=== PATIENT | male | born 2000 | race Caucasian/White ===

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

== ENCOUNTER 2022-11-13 17:10 | Outpatient (REF) | payer BC, MEDICAID, SELFPAY ==
[2022-11-13 21:02] LABS: Abs Immature Grans 0.01 10^3/uL (0.0-0.06); Absolute Basophil Count 0.04 10^3/uL (0.0-0.2); Absolute Lymphocyte Count 1.94 10^3/uL (1.2-3.4); Absolute Monocyte Count 0.59 10^3/uL (0.1-0.8); Absolute Neutrophil Count 2.89 10^3/uL (1.2-6.7); Basophils % 0.7; Eosinophils % 1.8; HCT 47.4 % (40.0-50.0); HGB 16.3 g/dL (13.5-17.5); Immature Grans % 0.2; Lymphocytes % 34.8; MCHC 34.4 % (32.0-36.0); MCV 93 fL (80-95); MPV 9.3 fL (8.0-11.0); Monocytes % 10.6; Neutrophils % 51.9; Platelet Count 249 10^3/uL (130-400); RBC 5.09 10^6/uL (4.36-5.78); RDW 11.1 % (11.8-14.1); RDW-SD 38.5 fL; WBC 5.57 10^3/uL (4.4-10.8)
[2022-11-13 21:15] LABS: ALT 21 U/L (16-63); AST 22 U/L (15-37); Albumin 4.5 g/dL (3.4-5.0); Alkaline Phosphatase 93 U/L (46-116); Anion Gap 5.3 mmol/L (3-11); BUN 14 mg/dL (7-18); Bilirubin, Total 0.4 mg/dL (0.2-1.0); CO2 33.7 mmol/L (21.0-32.0); CREATININE 1.2 mg/dL (0.70-1.30); Calcium 9.7 mg/dL (8.5-10.1); Chloride 103 mmol/L (98-107); Estimated GFR 89.34 (mL/min/1.73m2); Glucose 84 mg/dL (74-106); Magnesium 1.7 mg/dL (1.8-2.4); Potassium 4.6 mmol/L (3.5-5.1); Sodium 142 mmol/L (136-145); Total Protein 7.8 g/dL (6.4-8.2)
== END 2022-11-13 17:11 | disposition home or self-care (01) ==
LOC: LBN 17:10
PROVIDERS: Visit Provider Nurse Practitioner Family
DX: R11.2 Nausea with vomiting, unspecified (principal); R19.7 Diarrhea, unspecified; R10.9 Unspecified abdominal pain
CPT/HCPCS: 80053; 83735; 85025

== ENCOUNTER 2023-02-18 17:49 | Outpatient (REF) | payer BC, SELFPAY | END 2023-02-18 17:50 | disposition home or self-care (01) | LOC: LBN 17:49 | PROVIDERS: Visit Provider Nurse Practitioner Family | DX: J02.9 Acute pharyngitis, unspecified (principal) | CPT/HCPCS: 87077; 87070 ==

== ENCOUNTER 2023-04-23 20:08 | Emergency (ER) | payer BC, SELFPAY ==
[2023-04-23 20:12] VITALS: BP 123/55; PULSE 91; RESP 18; TEMP 36.7; O2SAT 100
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
[2023-04-23] MEDS: Fluorescein STRIPS 100/BOX 1 MG (20:33)
[2023-04-23] MEDS: Balanced Salt Solution 15 ML BTL OP (20:33)
[2023-04-23] MEDS: Tetracaine 0.5% 4 ML BTL (20:34)
[2023-04-23] MEDS: Ondansetron O.D.T. 4 MG TABEF PO (20:47)
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
[2023-04-23 21:52] VITALS: BP 129/62; PULSE 88; RESP 16; O2SAT 99
== END 2023-04-23 21:54 | disposition home or self-care (01) ==
PROVIDERS: Emergency Provider Registered Nurse Emergency
DX: S05.12XA Contusion of eyeball and orbital tissues, left eye, initial encounter (principal); S05.8X2A Other injuries of left eye and orbit, initial encounter; Y09 Assault by unspecified means
CPT/HCPCS: 99283; 99282

== ENCOUNTER 2024-05-06 20:34 | Outpatient (REF) | payer BC, SELFPAY ==
[2024-05-09 12:48] LABS: GC Result Negative (Negative)
[2024-05-09 13:24] LABS: Chlamydia Result Positive (Negative)
== END 2024-05-06 20:35 | disposition home or self-care (01) ==
LOC: LBN 20:34
PROVIDERS: Visit Provider Nurse Practitioner Family
DX: A74.89 Other chlamydial diseases; Z20.2 Contact with and (suspected) exposure to infections with a predominantly sexual mode of transmission
CPT/HCPCS: 87491; 87591

== ENCOUNTER 2024-10-05 17:26 | Emergency (ER) | payer OTHER, SELFPAY ==
[2024-10-05 17:46] VITALS: BP 131/76; PULSE 80; RESP 16; TEMP 36.7; O2SAT 98
--- NOTE | 2024-10-05 18:00 | DI.RAD_ITS ---
Exam(s) XR FINGER LT INDEX EXAM: XR FINGER LT INDEX CLINICAL HISTORY: crush at distal tip. TECHNIQUE: 2D digital imaging was performed. COMPARISON: No exams were available for comparison FINDINGS: 3 views No evidence of acute fracture nor dislocation. No osseous lesions nor erosions. There is no gas in the soft tissues. No radiopaque foreign bodies. IMPRESSION: No acute osseous findings. DATA REPOSITORY: RADIATION DOSE DELIVERED:
[2024-10-05] MEDS: Ibuprofen 800 MG TAB PO (18:07)
[2024-10-05 18:09] VITALS: RESP 16
--- NOTE | 2024-10-05 18:15 | ED.GENADUL_ITS ---
Discharge Plan Disposition Patient Disposition: Home Condition: Good Discharge Details Clinical Impression: Subungual hematoma of left index finger Primary Care Provider: Unknown,Unknown ED Provider: Messi Hill Home Meds and New Rx's Prescriptions: No Action No Known Home Meds Discharge Instructions Instructions: Cephalexin, Bruising Under the Nail Additional Instructions: At this time the x-ray does not show any evidence of fracture. It is likely that the bone has been bruised though. Please take Tylenol and Motrin for pain. The subungual hematoma has been drained. This will continue to drain for the next few hours. If you notice any spreading redness up the finger please return immediately for reassessment as this could represent infection. Please take the 4 doses of antibiotics that have been given. If you notice any worsening of your symptoms, or any new symptoms such as vomiting, diarrhea, fever, chills, shortness of breath, chest pain, numbness, weakness, or fainting , please return immediately to the emergency department for reevaluation. Please follow up with your primary care provider as soon as possible for reassessment and reev aluation. As always, it was a pleasure participating in your medical care today. HPI General Date/Time Provider Initiated Documentation: 10/05/24 17:38 . HPI Narrative: 23-year-old male who is right-hand dominant presents today for injury to his left index finger. Patient states that he was at work and a piece of sheet metal landed on the tip of his finger causing significant pain, then he subsequently developed a hematoma underneath his fingernail. He admits to a throbbing sensation in his finger. Pain is made worse with palpation and movement. He denies any numbness or tingling otherwise. Tetanus was last updated in 2013. No other complaints at this time. No other injuries. Related Data Home Medications ?Medication ?Instructions ?Recorded ?Confirmed Unknown [No Known Home Meds] 10/05/24 10/05/24 Allergies Allergy/AdvReac Type Severity Reaction Status Date / Time No Known Allergies Allergy Verified 10/05/24 17:50 General Stated Complaint: GenMedical MOISÉS: 4 Exam Narrative Exam Narrative: 1.Const: Well-nourished, Well-developed, appearing stated age 2.Eyes: PERRL, no conjunctival injection, and symmetrical lids. 3.ENT: Atraumatic external nose and ears. Moist MM. Neck: Symmetric, trachea midline, No thyromegaly. 4.CVS: +S1/S2, Peripheral pulses 2+ and equal in all extremities. Brisk capillary refill in all extremities. 5.RESP: Unlabored respiratory effort. Clear to auscultation bilaterally. No wheezes rales or rhonchi 6.GI: Soft, Nontender/Nondistended, No hepatosplenomegaly. No guarding or rebound. 7.MSK: Patient's left index finger demonstrates no tenderness at the MCP joint, PIP joint, minimal tenderness at the DIP joint, and notable tenderness at the distal tip over the nail. Subungual hematoma is certainly present. It encompasses about 50% of the nail. No nail cuticle disruption otherwise. No other abnormalities. No bleeding. Distal sensation is intact. Capillary refill is brisk. Patient is able to flex and extend the finger at all joints without difficulty. 8.Skin: Warm, Dry. No rashes or lesions. 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 Sensation grossly intact, no focal neurologic deficits. 10.Psych: (AAO) x3. Appropriate mood and affect Course Vital Signs Vital signs: Vital Signs Temperature 36.7 C 10/05/24 17:46 Pulse 80 10/05/24 17:46 Respiratory Rate 16 10/05/24 17:46 Blood Pressure 131/76 10/05/24 17:46 Pulse Oximetry 98 10/05/24 17:46 Temperature 36.7 C 10/05/24 17:46 Pulse 80 10/05/24 17:46 Respiratory Rate 16 10/05/24 18:09 Respiratory Effort Normal, Non-Labored 10/05/24 18:09 Respiratory Depth Normal 10/05/24 18:09 Respiratory Pattern Normal 10/05/24 18:09 Blood Pressure 131/76 10/05/24 17:46 Blood Pressure Position Sitting 10/05/24 17:46 Pulse Oximetry 98 10/05/24 17:46 Pain Level 10 10/05/24 18:10 Procedures Nail Trephination Time out: Yes Location (finger): left and index Method of drainage: nail cautery Procedure successful: Yes Patient tolerated procedure: well and no complications Medical Decision Making 23-year-old male who is right-hand dominant presents today for injury to his left index finger. Patient states that he was at work and a piece of sheet metal landed on the tip of his finger causing significant pain, then he subsequently developed a hematoma underneath his fingernail. He admits to a throbbing sensation in his finger. Pain is made worse with palpation and movement. He denies any numbness or tingling otherwise. Tetanus was last updated in 2013. No other complaints at this time. No other injuries. Patient's left index finger demonstrates no tenderness at the MCP joint, PIP joint, minimal tenderness at the DIP joint, and notable tenderness at the distal tip over the nail. Subungual hematoma is certainly present. It encompasses about 50% of the nail. No nail cuticle disruption otherwise. No other abnormalities. No bleeding. Distal sensation is intact. Capillary refill is brisk. Patient is able to flex and extend the finger at all joints without difficulty. Concern for potential fracture. Soft, inguinal hematoma would certainly benefit from drainage. Patient does need his tetanus shot updated. X-ray was ordered and shows no evidence of fracture. Subungual hematoma was subsequently drained with electrocautery. Patient declined lidocaine anesthetic. Patient tolerated procedure well, notable amount of blood and fluid shot out immediately. Patient had significant improvement of his pain immediately thereafter. With no evidence of fracture, I do not see an indication for splinting at this time. We will give a 24-hour course of antibiotics to prevent any low likelihood infection. Will give Keflex 500mg every 6 hours. Recommend continued NSAID therapy at home. Discussed red flags for which to return. Finger was bandaged prior to discharge. I have extensively reviewed the treatment plan and discharge instructions with the patient and their family. I have addressed all patient concerns at this time. The patient and family was made aware of what symptoms to monitor for that would warrant a return to the emergency department. Discussed the plan with the pat ient and family, they demonstrate verbal understanding and agreement with our assessment and plan at this time. The documentation in this chart was dictated using [employer] dictation software. Please excuse any dictation errors. FINDINGS: 3 views No evidence of acute fracture nor dislocation. No osseous lesions nor erosions. There is no gas in the soft tissues. No radiopaque foreign bodies. IMPRESSION: No acute osseous findings. Quality:SDOH Health Related Social Needs: No Data to Display PFSH All Active Problems (Updated 10/05/24 @ 18:59 by Messi R Magnolia, DO) Subungual hematoma of left index finger (Acute) Positive depression screening (Acute) Contact dermatitis (Acute 02/22/14) Medical History Subluxation of distal radial-ulnar joint Vision disorder Varicocele Urology eval 2020. Fracture of right ulna Family History Mother Mental disorder DEPRESSION Father Back pain Mental disorder Borderline diabetes SIBLINGS Asthma Other Snoring Social History Smoking/Tobacco Use Status: Current every day Tobacco Type: cigarettes Smoking risk assessment performed?: Yes Alcohol Intake: current Substance use type: marijuana Household members: family Housing: house Pets and animals: Yes Pets and animals: dog(s) Sexually active: Yes Do you feel safe at home: Yes Do you feel safe in your relationship?: Yes
[2024-10-05] MEDS: Diph,Pertuss(Acell),Tet Vac/Pf 0.5 ML SYR IM (19:04)
[2024-10-05] MEDS: Cephalexin 500 MG CAP, 4 CAPS/BTL PO (19:05)
== END 2024-10-05 19:11 | disposition home or self-care (01) ==
PROVIDERS: Emergency Provider Student in an Organized Health Care Education/Training Program
DX: S60.122A Contusion of left index finger with damage to nail, initial encounter (principal); Z23 Encounter for immunization; W20.8XXA Other cause of strike by thrown, projected or falling object, initial encounter; Y93.89 Activity, other specified; Y92.89 Other specified places as the place of occurrence of the external cause; Y99.0 Civilian activity done for income or pay
CPT/HCPCS: 11740; 90471; 90715; 99283; 73140